=== PATIENT | male | born 1930 | race Caucasian/White ===

== ENCOUNTER → 2016-11-04 | Outpatient (CLI) | payer MEDICARE, BC ==
[2016-11-04 12:01] LABS: ABSOLUTE BASOPHILS # (AUTO) 0.1 10^3/uL (0.0-0.2); ABSOLUTE EOSINOPHILS # (AUTO) 0.2 10^3/uL (0.0-0.6); ABSOLUTE MONOCYTES (AUTO) 0.4 10^3/uL (0.1-1.4); ABSOLUTE NEUT (AUTO) 2.6 10^3/uL (1.7-8.2); EOSINOPHILS % (AUTO) 3.2 % (0-6); HEMOGLOBIN 14.9 g/dL (13.5-17.0); HGB HCT DIFFERENCE 0.7; LYMPHOCYTES % (AUTO) 38.2 % (13-45); MEAN CORPUSCULAR HGB CONC 33.8 g/dL (32.0-36.0); MEAN CORPUSCULAR VOLUME 95 fl (80-97); MONOCYTES % (AUTO) 7.4 % (3-13); RED BLOOD COUNT 4.64 10^6/uL (4.35-5.55); SEGMENTED NEUTROPHILS % (AUTO) 50.2 % (42-78); WHITE BLOOD COUNT 5.1 10^3/uL (4.0-10.5)
[2016-11-04 12:22] LABS: ALANINE AMINOTRANSFERASE 33 U/L (21-72); ALBUMIN 4.1 g/dL (3.5-5.0); ALKALINE PHOSPHATASE 51 U/L (38-126); ANION GAP 10 (5-19); ASPARTATE AMINO TRANSFERASE 24 U/L (17-59); BILIRUBIN,DIRECT 0.3 mg/dL (0.0-0.4); BILIRUBIN,TOTAL 1.5 mg/dL (0.2-1.3); BLOOD UREA NITROGEN 17 mg/dL (7-20); CALCIUM 9.6 mg/dL (8.4-10.2); CARBON DIOXIDE 29 mmol/L (22-30); CHLORIDE 102 mmol/L (98-107); CREATININE RESULT 0.81 mg/dL (0.52-1.25); Direct HDL 51 mg/dL (>40); GLUCOSE 110 mg/dL (75-110); POTASSIUM 4.1 mmol/L (3.6-5.0); SODIUM 140.8 mmol/L (137-145); TOTAL PROTEIN 7.3 g/dL (6.3-8.2); TRIGLYCERIDES 151 mg/dL (<150)
[2016-11-04 12:33] LABS: DIRECT LDL 83 mg/dL (<100)
[2016-11-04 12:36] LABS: VLDL CHOLESTEROL 30.2 mg/dL (10-31)
== END ==
LOC: OD 10:20
PROVIDERS: ATTEND Internal Medicine
DX: I10 Essential (primary) hypertension (principal); E78.5 Hyperlipidemia, unspecified; I73.9 Peripheral vascular disease, unspecified; N40.0 Benign prostatic hyperplasia without lower urinary tract symptoms
CPT/HCPCS: 36415; 80053; 80061; 84443; 85025

== ENCOUNTER 2017-06-01 09:11 | Day surgery (SDC) | payer MEDICARE, BC ==
[2017-05-18 12:23] LABS: PROTHROMBIN TIME 13.9 SEC (11.4-15.4)
[2017-05-18 12:24] LABS: PARTIAL THROMBOPLASTIN TIME 31.9 SEC (23.5-35.8)
[2017-05-18 12:31] LABS: HEMATOCRIT 43.5 % (37.9-51.0); HEMOGLOBIN 14.9 g/dL (13.5-17.0); MEAN CORPUSCULAR HEMOGLOBIN 31.8 pg (27.0-33.4); MEAN CORPUSCULAR HGB CONC 34.3 g/dL (32.0-36.0); MEAN CORPUSCULAR VOLUME 93 fl (80-97); PLATELET COUNT 195 10^3/uL (150-450); RED BLOOD COUNT 4.69 10^6/uL (4.35-5.55); RED CELL DISTRIBUTION WIDTH 12.7 % (11.5-14.0); WHITE BLOOD COUNT 6.6 10^3/uL (4.0-10.5)
[2017-05-18 12:37] LABS: ANION GAP 11 (5-19); BLOOD UREA NITROGEN 13 mg/dL (7-20); CALCIUM 9.5 mg/dL (8.4-10.2); CARBON DIOXIDE 29 mmol/L (22-30); CHLORIDE 101 mmol/L (98-107); GLUCOSE 115 mg/dL (75-110); POTASSIUM 4.4 mmol/L (3.6-5.0); SODIUM 140.7 mmol/L (137-145)
--- NOTE | 2017-05-18 13:10 | EKG REPORT ---
SEVERITY:- ABNORMAL ECG - SINUS RHYTHM BORDERLINE LEFT AXIS DEVIATION NONSPECIFIC ST-T CHANGES- INFERIOR LEADS : Confirmed by: Pernell Sultana MD 18-May-2017 13:10:07
[~2017-06-01 09:11] MED LIST: CEFAZOLIN 1 GM/D5W RTU 1 GM/50 ML RTUPB IV PRN; LACTATED RINGERS 1000 ML IV PRN; LIDOCAINE 1%/EPINEPHRINE INJ 20 ML VIAL ONE; POVIDONE-IODINE 5% OPH PREP SOLN 30 ML ONE; SODIUM BICARBONATE 8.4% INJ 50 MEQ/50 ML DISP.SYRIN ONE
[2017-06-01] MEDS ORDERED: MIDAZOLAM 2 MG/2 ML INJ ONE (10:11)
[2017-06-01] MEDS ORDERED: FENTANYL CITRATE INJ/PF 100 MCG/2 ML AMPUL ONE ×2 (10:11)
[2017-06-01] MEDS ORDERED: PROPOFOL INJ 200 MG/20 ML VIAL IV ONE (10:12)
[2017-06-01] MEDS ORDERED: ONDANSETRON HCL INJ/PF 4 MG/2 ML SDV IV PRN (11:12)
[2017-06-01] MEDS ORDERED: DIPHENHYDRAMINE HCL 50 MG/ML VIAL IV PRN (11:12)
[2017-06-01] MEDS ORDERED: FENTANYL CITRATE INJ/PF 100 MCG/2 ML AMPUL IV PRN ×3 (11:12)
--- NOTE | 2017-06-01 12:48 | Operative Report ---
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 Patient was brought into the operating room and placed on the operating room table in a supine position. Patient was then prepped with a Betadine scrub and Betadine solution and draped in a sterile and aseptic manner. The area was then marked. 12 O'clock was marked towards the attachment of the ear 3 O'clock was marked towards the posterior 6:00 was marked towards the earlobe 9:00 was marked towards the cheek The area was then anesthetized with 1% lidocaine with epinephrine and bicarbonate for its anesthetic and hemostatic effects. The area was then excised and marked at 12:00. The specimen was sent for frozen section. The results came back that the deep and lateral margins were free. We had considered a primary closure but this would go against the natural relaxed skin tension lines. A primary closure would be too tight and would have increased chance of dehiscence. This will leave more of a scar so we decided to use a postauricular advancement flap reconstruction which would camouflage the scar better and take tension off of the closure so that would be less chances of complications. Because the cancer extended down onto the perichondrium could not do a graft so therefore a helical rim advancement flap was felt to be the best for this patient and give the least amount of distortion in the best cosmetic outcome Then we went ahead and outlined the flap and anesthetized it. We then incised the flap and developed a flap maintaining the subdermal plexus. Then we undermined 360 to allow for plate like scarring and minimize trap door deformity. Throughout the case hemostasis was achieved with the bipolar. Skin was closed with a interrupted stitch using 5-0 Prolene with knots being tied on the outside. We then applied tincture benzoin and Steri-Strips followed by a light pressure dressing. Patient was then reversed from anesthesia and taken to the [facility] for recovery. The patient tolerated well. There were no complications. Lesion size was approximately 1.2 cm please see pathology for actual size. Portions of this note may be dictated using [employer] voice recognition software. Occasional variations and spelling and vocabulary could be possible and are unintentional. Additionally, there is a chance that some errors may not be caught or corrected. Please notify the author of any discrepancies noted or if any statements are unclear. Subjective: No complaints Objective: Vital signs stable afebrile No bleeding Dressing intact Assessment and plan: Doing well. Elevate the operative site. Resume medications. Take antibiotics for 1 day Follow-up Full instructions were given to the patient and family and they understand Portions of this note may be dictated using [employer] voice recognition software. Occasional variations and spelling and vocabulary could be possible and are unintentional. Additionally, there is a chance that some errors may not be caught or corrected. Please notify the offer of any discrepancies noted or if any statements are unclear.
--- NOTE | 2017-06-01 12:50 | Discharge Summary ---
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 Leave the steri-strip tapes on for 5 days, then removal. Then cleaning wound with peroxide and apply Neosporin/bacitracin 3 times per day. Antibiotics for 1 day, then discontinue. Elevate operative area to decrease swelling. Do not strain, or lift heavy objects. Call for excessive bleeding, increased temperature of 101, uncontrolled pain, or excessive nausea or vomiting. You may reach Dr. Mitchell through his office at [phone]. In the event of an emergency after hours, then contact Dr. Mitchell through [facility]. Return to the office for a postop check on . The time will be scheduled by the nursing staff of [facility] prior to discharge. Please give the patient a copy of their labs and EKG so they can bring this to their PMD. Thank you Portions of this note may be dictated using [employer] voice recognition software. Occasional variations and spelling and vocabulary could be possible and are unintentional. Additionally, there is a chance that some errors may not be caught or corrected. Please notify the offer of any discrepancies noted or if any statements are unclear. Referrals: CM SLATER MD [Primary Care Provider] - Discharge Diet: As Tolerated Report the Following to Your Physician Immediately: Unusual Bleeding - Keep head elevated. No bending or straining. Follow-up on .
[2017-06-01 18:17] VITALS: BP 170/87
== END 2017-06-01 14:40 | disposition home or self-care (01) ==
LOC: OROUT 09:11
PROVIDERS: ATTEND Plastic Surgery
PROC: 0HB3XZZ Excision of Left Ear Skin, External Approach (ICD-10-PCS; 2017-06-01)
PROC: 0HX3XZZ Transfer Left Ear Skin, External Approach (ICD-10-PCS; principal; 2017-06-01 11:00)
DX: C44.219 Basal cell carcinoma of skin of left ear and external auricular canal (principal); I10 Essential (primary) hypertension; E89.2 Postprocedural hypoparathyroidism; E89.3 Postprocedural hypopituitarism; E89.0 Postprocedural hypothyroidism; Z79.01 Long term (current) use of anticoagulants; Z87.891 Personal history of nicotine dependence; Z79.899 Other long term (current) drug therapy; Z79.82 Long term (current) use of aspirin; Z85.828 Personal history of other malignant neoplasm of skin
CPT/HCPCS: 300; 36415; 80048; 85027; 85610; 85730; 88305; 88331; 93005; 93010; J0690; J2250; J2704; J3010; J3490

== ENCOUNTER 2017-06-14 13:00 | Emergency (ER) | payer MEDICARE, BC ==
--- NOTE | 2017-06-14 14:39 | ER Document Report ---
ED Extremity Problem, Lower - General Chief Complaint: Leg Pain Stated Complaint: RIGHT LEG PAIN Time Seen by Provider: 06/14/17 14:07 Mode of Arrival: Wheelchair Information source: Patient Notes: 86-year-old male presents to ED for complaint of pain and swelling to his right knee and leg all the way down to his foot for the last 6 days. He states that he had to get a piece of PVC pipe up from the floor and he had been down to do it. He states he put his knee on the ground and when he did he twisted his knee and leg and has had pain since then. He states he went to [place] [facility] last week and they did a venous Doppler which was negative. He states the pain just continues to get worse. He states he takes gabapentin Klonopin and hydrocodone which is not helping this pain. He denies using any brace or anything during this time. He states he has one at home but did not think to put it on. TRAVEL OUTSIDE OF THE [place] IN LAST 30 DAYS: No - HPI Location: Knee, Leg Occurred: Other Where: Outdoors - 6 days ago Onset/Duration: Persistent Quality of pain: Achy, Cramping, Sharp Severity: Severe Pain Level: 5 Context: Twisted Recent injury: Possibly Associated symptoms: Painful ambulation Exacerbated by: Hanging down, Movement, Walking Relieved by: Nothing - Related Data Allergies/Adverse Reactions: No Known Allergies Allergy (Verified 06/14/17 13:01) Past Medical History - General Information source: Patient - Social History Smoking Status: Never Smoker Cigarette use (# per day): No Chew tobacco use (# tins/day): No Smoking Education Provided: No Frequency of alcohol use: None Drug Abuse: None Lives with: Family Family History: Reviewed & Not Pertinent Patient has suicidal ideation: No Patient has homicidal ideation: No - Past Medical History Cardiac Medical History: Reports: None Pulmonary Medical History: Reports: None EENT Medical History: Reports: None Neurological Medical History: Reports: None, Other - Peripheral neuropathy bilateral lower extremity Endocrine Medical History: Reports: Other - Thyroidectomy due to goiter Renal/ Medical History: Reports: Hx Benign Prostatic Hyperplasia Malignancy Medical History: Reports Hx Skin Cancer GI Medical History: Reports: Hx Endoscopy - 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 Denies: Hx Coronary Artery Bypass Graft, Hx Coronary Stent - Immunizations Immunizations up to date: Yes Hx Diphtheria, Pertussis, Tetanus Vaccination: - UNSURE Hx Pneumococcal Vaccination: 12/20/13 Review of Systems - Review of Systems Constitutional: No symptoms reported EENT: No symptoms reported Cardiovascular: No symptoms reported Respiratory: No symptoms reported Gastrointestinal: No symptoms reported Genitourinary: No symptoms reported Male Genitourinary: No symptoms reported Musculoskeletal: Other - Right knee and lower leg pain Skin: No symptoms reported Hematologic/Lymphatic: No symptoms reported Neurological/Psychological: No symptoms reported Physical Exam - Vital signs Vitals: Temp Pulse Resp BP Pulse Ox 97.9 F 78 16 153/73 H 96 06/14/17 13:06 06/14/17 13:06 06/14/17 13:06 06/14/17 13:06 06/14/17 13:06 Interpretation: Normal - General General appearance: Appears well, Alert - HEENT Head: Normocephalic, Atraumatic Eyes: Normal Pupils: PERRL - Respiratory Respiratory status: No respiratory distress Chest status: Nontender Breath sounds: Normal Chest palpation: Normal - Cardiovascular Rhythm: Regular Heart sounds: Normal auscultation Murmur: No - Abdominal Inspection: Normal Distension: No distension Bowel sounds: Normal Tenderness: Nontender Organomegaly: No organomegaly - Back Back: Normal, Nontender - Extremities General upper extremity: Normal inspection, Nontender, Normal color, Normal ROM , Normal temperature General lower extremity: Normal temperature. No: Silviano's sign Knee: Tender, Ecchymosis, Joint effusion, Pain with ROM, Patellar tendon intact , Tender joint line. No: Abrasion, Deformity, Dislocation, Drawer's test instability, Instability, Laceration, Laxity with valgus stress, Laxity with varus stress, Popliteal fossa tender, Unable to bear weight - Painful to bear weight Calf: Normal, Nontender Ankle: Normal, Nontender Foot: Normal, Nontender - Neurological Neuro grossly intact: Yes Cognition: Normal Orientation: AAOx4 Brittney Coma Scale Eye Opening: Spontaneous Alpine Coma Scale Verbal: Oriented Alpine Coma Scale Motor: Obeys Commands Brittney Coma Scale Total: 15 Speech: Normal Motor strength normal: LUE, RUE, LLE, RLE Sensory: Normal - Psychological Associated symptoms: Normal affect, Normal mood - Skin Skin Temperature: Warm Skin Moisture: Dry Skin Color: Normal Course - Re-evaluation Re-evalutation: 06/15/17 02:40 Patient refused Miles wrap or knee immobilizer. He states he can walk out and he has a new brace at home that he would rather use his own. Patient was instructed to follow-up with her primary doctor and with orthopedics. Patient and verbalized understanding of instructions. - Vital Signs Vital signs: Temp Pulse Resp BP Pulse Ox 98.4 F 71 16 150/73 H 98 06/14/17 16:11 06/14/17 16:11 06/14/17 16:11 06/14/17 16:11 06/14/17 16:11 - Laboratory Result Diagrams: 06/14/17 14:40 Laboratory results interpreted by me: 06/14/17 14:40 Carbon Dioxide 32 H - Diagnostic Test Radiology reviewed: Image reviewed, Reports reviewed Discharge - Discharge Clinical Impression: Effusion, right knee Right knee pain Qualifiers: Chronicity: acute Qualified Code(s): M25.561 - Pain in right knee Condition: Stable Disposition: HOME, SELF-CARE Additional Instructions: SUSPECTED INTERNAL KNEE INJURY: The examiner of your injured knee suspects an internal injury to the cartilage or internal ligaments. This must be further investigated by an lead sustainability specialist. The knee should be protected, ice packed, and elevated while awaiting your follow-up exam by the orthopedist. If there is severe swelling, severe pain, or any new symptoms while awaiting your exam, you should call the orthopedist. (If he/she is unavailable, call us or return for re-examination.) ICE & ELEVATION: Apply ice packs frequently against the painful area. Many different schedules are recommended, such as "20 minutes on, 20 minutes off" or "one hour ice, two hours rest." If you need to work, you may need to go longer between ice treatments. You should plan to have the area ice packed AT LEAST one- fourth of the time. The ice should be applied over the wrap, tape, or splint, or over a layer of cloth -- not directly against the skin. Some ice bags have a built-in cloth and can be put directly on the skin. Your injured part should be elevated as much as possible over the next 48 hours. Try to keep the injury above the level of the heart. Avoid use of the injured area. Elevation and rest will decrease the swelling. USE OF [id number] IBUPROFEN: Ibuprofen (Advil, Nuprin, Medipren, Motrin IB) is a medication for fever and pain control. In addition, it has anti- inflammatory effects which may be beneficial, especially in the treatment of injuries. It's best to take ibuprofen with food. Persons with ulcer disease or allergy to aspirin should notify their physician of this before taking ibuprofen. Ibuprofen can be given every four to six hours, for a total of four doses daily. Age Pain or fever dose Antiinflammatory dose 6-8 yr 200 mg (1 tab) 200 mg (1 tab) 9-11 yr 200 mg (1 tab) 200-400 mg (1-2 tab) 11-14 yr 200-400 mg (1-2 tab) 400 mg (2 tab) 15-adult 400 mg (2 tab) 600 mg (3 tab) ORAL NARCOTIC MEDICATION: Usually and narcotics as are prescribed. You are not getting a new prescription at this time as you are on chronic pain management. This medication is a narcotic. It's best taken with food, as nausea can result if taken on an empty stomach. Don't operate machinery or drive within six hours of taking this medication. Do not combine this medicine with alcohol, or with any medication which can cause sedation (such as cold tablets or sleeping pills) unless you get permission from the physician. Narcotics tend to cause constipation. If possible, drink plenty of fluids and eat a diet high in fiber and fruits. Please be aware that prescription narcotics also have the potential for abuse. People become addicted to these medications because of the general sense of wellbeing that they induce. This feeling along with a significant reduction in tension, anxiety, and aggression provides a stimulating seductive quality to these drugs. Once your pain is under control, we encourage you to discard your unused narcotics. You knee brace that you have at home. This could give you comfort until you follow-up with the primary doctor and orthopedics. Also he can use the Aspercreme you have at home if it is Aspercreme lidocaine as this may give you some comfort also. Please follow-up with the primary doctor as I have instructed you. I have given you a copy of the lab results and the x-ray results please take these with you to your follow-up appointments. FOLLOW-UP CARE: If you have been referred to a physician for follow-up care, call the physician s office for an appointment as you were instructed or within the next two days. If you experience worsening or a significant change in your symptoms, notify the physician immediately or return to the Emergency Department at any time for re-evaluation. Forms: Elevated Blood Pressure Referrals: CM SLATER MD [Primary Care Provider] - Follow up tomorrow SANDRA MORALES DO [ACTIVE STAFF] - Follow up as needed
[2017-06-14 15:11] LABS: ALANINE AMINOTRANSFERASE 36 U/L (21-72); ALKALINE PHOSPHATASE 65 U/L (38-126); ANION GAP 6 (5-19); ASPARTATE AMINO TRANSFERASE 27 U/L (17-59); BILIRUBIN,DIRECT 0.3 mg/dL (0.0-0.4); BLOOD UREA NITROGEN 14 mg/dL (7-20); CALCIUM 9.5 mg/dL (8.4-10.2); CARBON DIOXIDE 32 mmol/L (22-30); CHLORIDE 103 mmol/L (98-107); CREATINE KINASE 124 U/L (55-170); GLUCOSE 102 mg/dL (75-110); POTASSIUM 4.1 mmol/L (3.6-5.0); SODIUM 140.8 mmol/L (137-145); TOTAL PROTEIN 7.1 g/dL (6.3-8.2)
--- NOTE | 2017-06-14 15:20 | RADIOLOGY REPORT (SQ) ---
EXAM DESCRIPTION: KNEE RIGHT 4 VIEWS COMPLETED DATE/TIME: 06/14/2017 2:58 pm REASON FOR STUDY: pain after twisting knee and leg COMPARISON: None. NUMBER OF VIEWS: Four views. TECHNIQUE: AP, lateral, and both oblique radiographic images acquired of the right knee. LIMITATIONS: None. FINDINGS: MINERALIZATION: Normal. BONES: No acute fracture or dislocation. No worrisome bone lesions. JOINT: There is a joint effusion. SOFT TISSUES: No soft tissue swelling. No radio-opaque foreign body. OTHER: No other significant finding. IMPRESSION: There is a joint effusion. There is no osseous abnormality. TECHNICAL DOCUMENTATION: JOB ID: [id number] [employer]- All Rights Reserved Reading location - IP/workstation name: [email or web address]
--- NOTE | 2017-06-14 15:21 | RADIOLOGY REPORT (SQ) ---
EXAM DESCRIPTION: TIBIA FIBULA RIGHT COMPLETED DATE/TIME: 06/14/2017 2:58 pm REASON FOR STUDY: pain after twisting knee and leg COMPARISON: None. NUMBER OF VIEWS: Two views. TECHNIQUE: Two radiographic images acquired of the right tibia and fibula to include the knee and an kle in at least one projection. LIMITATIONS: None. FINDINGS: MINERALIZATION: Normal. BONES: No acute fracture or dislocation. No worrisome bone lesions. SOFT TISSUES: No obvious swelling or foreign body. OTHER: No other significant finding. IMPRESSION: NEGATIVE STUDY OF THE RIGHT TIBIA AND FIBULA. NO RADIOGRAPHIC EVIDENCE OF ACUTE INJURY. TECHNICAL DOCUMENTATION: JOB ID: [id number] [employer]- All Rights Reserved Reading location - IP/workstation name: [email or web address]
[2017-06-14 16:16] VITALS: BP 150/73
== END 2017-06-14 16:16 | disposition home or self-care (01) ==
LOC: ER 13:00
DX: M25.461 Effusion, right knee (principal); M25.561 Pain in right knee; M79.604 Pain in right leg; M79.89 Other specified soft tissue disorders; X50.1XXA Overexertion from prolonged static or awkward postures, initial encounter; Z79.899 Other long term (current) drug therapy
CPT/HCPCS: 36415; 80053; 82550; 99283

== ENCOUNTER 2017-08-30 20:24 | Inpatient (IN) | payer MEDICARE, BC ==
[2017-08-30] MEDS ORDERED: ASPIRIN 81 MG TABLET, CHEWABLE PO ONE (21:10)
[2017-08-30] MEDS ORDERED: DILTIAZEM HCL/D5W 125 MG/125 ML RTUINJ IV PRN (21:11)
--- NOTE | 2017-08-30 21:16 | ER Document Report ---
ED Cardiac - General Chief Complaint: Chest Pain Stated Complaint: CHEST PAIN Time Seen by Provider: 08/30/17 21:00 Notes: Patient is a 86-year-old male that comes emergency department for chief complaint of chest pain that happened at 11 AM this morning, lasted for an hour and resolved but he states that he is intermittently getting very lightheaded feeling and became concerned. He denies syncope. He states he is intermittently mildly short of breath. He denies fever or chills, cough, nausea or vomiting. He is compliant with medications including metoprolol and he has a history of hyperlipidemia. He states he had a catheterization performed 2 years ago which showed some blockage but no stents were placed. He denies smoking, alcohol, recreational drugs. TRAVEL OUTSIDE OF THE [place] IN LAST 30 DAYS: No - Related Data Allergies/Adverse Reactions: No Known Allergies Allergy (Verified 08/30/17 20:26) Past Medical History - General Information source: Patient - Social History Smoking Status: Never Smoker Frequency of alcohol use: None Drug Abuse: None Lives with: Family Family History: Reviewed & Not Pertinent - Past Medical History Cardiac Medical History: Reports: Hx Hypercholesterolemia, Hx Hypertension Denies: Hx Coronary Artery Disease, Hx Heart Attack Pulmonary Medical History: Denies: Hx Asthma, Hx Bronchitis, Hx COPD, Hx Pneumonia Neurological Medical History: Denies: Hx Cerebrovascular Accident, Hx Seizures Renal/ Medical History: Reports: Hx Benign Prostatic Hyperplasia. 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 Denies: Hx Hepatitis, Hx Hiatal Hernia, Hx Ulcer Musculoskeltal Medical History: Reports Hx Arthritis - KALLI FEET/LEGS Infectious Medical History: Denies: Hx Hepatitis Past Surgical History: Reports: Hx Cardiac Catheterization, Hx Thyroid Surgery - Thyroidectomy left a very small piece. Denies: Hx Coronary Artery Bypass Graft, Hx Coronary Stent, Hx Open Heart Surgery, Hx Pacemaker - Immunizations Immunizations up to date: Yes Hx Diphtheria, Pertussis, Tetanus Vaccination: Yes Hx Pneumococcal Vaccination: 12/20/13 Review of Systems - Review of Systems Constitutional: No symptoms reported EENT: No symptoms reported Cardiovascular: See HPI Respiratory: See HPI Gastrointestinal: No symptoms reported Genitourinary: No symptoms reported Male Genitourinary: No symptoms reported Musculoskeletal: No symptoms reported Skin: No symptoms reported Hematologic/Lymphatic: No symptoms reported Neurological/Psychological: No symptoms reported Physical Exam - Vital signs Vitals: Resp Pulse Ox 17 95 08/30/17 20:53 08/30/17 20:53 - Notes Notes: GENERAL: Alert, interacts well. No acute distress. HEAD: Normocephalic, atraumatic. EYES: Pupils equal, round, and reactive to light. Extraocular movements intact. ENT: Oral mucosa moist, tongue midline. NECK: Full range of motion. Supple. Trachea midline. LUNGS: Clear to auscultation bilaterally, no wheezes, rales, or rhonchi. No respiratory distress. HEART: Irregularly irregular with tachycardia ABDOMEN: Soft, non-tender. Non-distended. Bowel sounds present in all 4 quadrants. EXTREMITIES: Moves all 4 extremities spontaneously. No edema, normal radial and dorsalis pedis pulses bilaterally. No cyanosis. BACK: no cervical, thoracic, lumbar midline tenderness. No saddle anesthesia, normal distal neurovascular exam. NEUROLOGICAL: Alert and oriented x3. Normal speech. [cranial nerves II through XII grossly intact]. PSYCH: Normal affect, normal mood. SKIN: Warm, dry, normal turgor. No rashes or lesions noted. Course - Re-evaluation Re-evalutation: EKG shows atrial fibrillation with rapid ventricular response at a rate of 135 inverted T waves inferiorly, borderline ST segment depression in leads V4 and V5. Patient denies any knowledge of history of atrial fibrillation, also denies. Appears to be new onset atrial fibrillation with rapid ventricular response, likely the cause of patient's symptoms, workup pending. Blood pressure 109-120s systolic, patient is 86 years old, decision was made not to give bolus but to start drip instead and titrate, this was discussed with Dr. De La Rosa. Patient with no change with the drip on 5 mg/hr, this was increased to 10 mg/h. After about 1 minute on the new dose patient's heart rate started to improve, remained in atrial fibrillation in the 80s-90s. Patient asymptomatic on reevaluation. CBC unremarkable, chemistry generally unremarkable, TSH unremarkable, magnesium unremarkable. CK mildly elevated. Troponin indeterminate at 0.083. Discussed with patient, will discuss with hospitalist for admission for new onset atrial fibrillation with rapid ventricular response. Anticoagulation begun with Lovenox. Discussed with Dr. Carr, internal medicine, patient will be admitted to [facility]. Patient and significant other state understanding agreement. - Vital Signs Vital signs: Temp Pulse Resp BP Pulse Ox 98.0 F 63 20 110/64 96 08/31/17 03:35 08/31/17 03:35 08/31/17 03:35 08/31/17 03:35 08/31/17 03:35 - Laboratory Result Diagrams: 08/30/17 20:50 08/30/17 20:50 Laboratory results interpreted by me: 08/30/17 08/30/17 20:46 20:50 Carbon Dioxide 32 H Creatine Kinase 174 H Urine Glucose (UA) 50 H Ur Leukocyte Esterase TRACE H Critical Care Note - Critical Care Note Total time excluding time spent on procedures (mins): 35 - Atrial fibrillation with rapid ventricular response Comments: Critical care time spent obtaining history from patient, discussions with consultants, development of treatment plan with patient, evaluation of patient' s response to treatment, examination of patient, ordering and performing treatments and interventions, ordering and review of laboratory studies, re- evaluation of patient's condition, ordering and review of radiographic studies, admission to the hospital. Discharge - Discharge Clinical Impression: Atrial fibrillation with rapid ventricular response, Lightheaded Condition: Stable Disposition: ADMITTED INPATIENT Admitting Provider: Hospitalist Unit Admitted: [facility]
[2017-08-30] MEDS ORDERED: DILTIAZEM HCL INJ 25 MG/5 ML VIAL ONE (21:20)
[2017-08-30 21:29] LABS: ABSOLUTE EOSINOPHILS # (AUTO) 0.1 10^3/uL (0.0-0.6); ABSOLUTE LYMPHOCYTES (AUTO) 2.6 10^3/uL (0.5-4.7); ABSOLUTE MONOCYTES (AUTO) 0.5 10^3/uL (0.1-1.4); ABSOLUTE NEUT (AUTO) 3.7 10^3/uL (1.7-8.2); BASOPHILS % (AUTO) 0.6 % (0-2); EOSINOPHILS % (AUTO) 1.6 % (0-6); HEMATOCRIT 45.5 % (37.9-51.0); HEMOGLOBIN 15.6 g/dL (13.5-17.0); LYMPHOCYTES % (AUTO) 37.5 % (13-45); MEAN CORPUSCULAR HEMOGLOBIN 32.3 pg (27.0-33.4); MEAN CORPUSCULAR HGB CONC 34.2 g/dL (32.0-36.0); MEAN CORPUSCULAR VOLUME 95 fl (80-97); MONOCYTES % (AUTO) 7.7 % (3-13); PLATELET COUNT 241 10^3/uL (150-450); RED BLOOD COUNT 4.82 10^6/uL (4.35-5.55); SEGMENTED NEUTROPHILS % (AUTO) 52.6 % (42-78); TOTAL CELLS COUNTED % (AUTO) 100 %
[2017-08-30 21:41] LABS: ALANINE AMINOTRANSFERASE 27 U/L (21-72); ALBUMIN 4.2 g/dL (3.5-5.0); ALKALINE PHOSPHATASE 56 U/L (38-126); ANION GAP 11 (5-19); ASPARTATE AMINO TRANSFERASE 26 U/L (17-59); BILIRUBIN,DIRECT 0.4 mg/dL (0.0-0.4); BILIRUBIN,TOTAL 0.6 mg/dL (0.2-1.3); BLOOD UREA NITROGEN 19 mg/dL (7-20); CALCIUM 9.8 mg/dL (8.4-10.2); CARBON DIOXIDE 32 mmol/L (22-30); CHLORIDE 100 mmol/L (98-107); CREATINE KINASE 174 U/L (55-170); GLUCOSE 103 mg/dL (75-110); POTASSIUM 4.3 mmol/L (3.6-5.0); SODIUM 143.4 mmol/L (137-145); TOTAL PROTEIN 7.6 g/dL (6.3-8.2)
[2017-08-30 21:52] LABS: CREATINE KINASE MB 4.29 ng/mL (<4.55)
[2017-08-30 21:56] LABS: TROPONIN I 0.083 ng/mL
--- NOTE | 2017-08-30 21:59 | RADIOLOGY REPORT (SQ) ---
EXAM DESCRIPTION: CHEST SINGLE VIEW COMPLETED DATE/TIME: 08/30/2017 9:37 pm REASON FOR STUDY: chest pain, dizziness COMPARISON: None. EXAM PARAMETERS: NUMBER OF VIEWS: One view. TECHNIQUE: Single frontal radiographic view of the chest acquired. RADIATION DOSE: NA LIMITATIONS: None. FINDINGS: LUNGS AND PLEURA: Mild basilar platelike subsegmental atelectasis bilaterally. No dense c onsolidation or significant effusion. MEDIASTINUM AND HILAR STRUCTURES: Age-appropriate. HEART AND VASCULAR STRUCTURES: Mild cardiac enlargement. BONES: No acute findings. HARDWARE: None in the chest. OTHER: No other significant finding. IMPRESSION: Mild basilar platelike subsegmental atelectasis bilaterally. No dense consolidation or significant effusion. TECHNICAL DOCUMENTATION: JOB ID: [id number] [id number] 2010 [employer]- All Rights Reserved Reading location - IP/workstation name: [email or web address]
[2017-08-30] MEDS ORDERED: ENOXAPARIN SODIUM INJ 80 MG/0.8 ML DISP.SYRIN SUBCUT ONE (23:12)
[2017-08-30] MEDS ORDERED: GABAPENTIN 300 MG CAPSULE PO ONE (23:15)
[2017-08-30] MEDS ORDERED: MAG HYDROX/AL HYDROX/SIMETH SUSP 30 ML UDCUP PO PRN (23:16)
[2017-08-30] MEDS ORDERED: NORMAL SALINE 1000 ML 1,000 ML IV PRN (23:19)
[2017-08-30] MEDS ORDERED: METOPROLOL TARTRATE 25 MG TABLET PO ONE (23:45)
[2017-08-31 01:03] LABS: APPEARANCE,URINE CLEAR; BILIRUBIN,URINE NEGATIVE (NEGATIVE); COLOR,URINE YELLOW; GLUCOSE, URINE 50 mg/dL (NEGATIVE); KETONES,URINE NEGATIVE (NEGATIVE); LEUKOCYTE ESTERASE,URINE TRACE (NEGATIVE); NITRITE,URINE NEGATIVE (NEGATIVE); PROTEIN,URINE NEGATIVE (NEGATIVE); URINE SPECIFIC GRAVITY 1.019; UROBILINOGEN,URINE NEGATIVE mg/dL (<2.0)
[2017-08-31] MEDS ORDERED: NORMAL SALINE 1000 ML 1,000 ML IV ONE (05:15)
[2017-08-31] MEDS ORDERED: METOPROLOL TARTRATE 25 MG TABLET PO ONE (05:15)
--- NOTE | 2017-08-31 05:35 | PDOC H&P ---
History of Present Illness Admission Date/PCP: 08/30/17 23:28 CM SLATER, Patient complains of: Palpitations History of Present Illness: JANAE PORTILLO is a 86 year old male with history of hypertension and dyslipidemia, coronary artery disease, esophageal stricture, neuropathic pain and BPH. Patient presents with approximately 12 hours of chest tightness and palpitations associated with lightheadedness. Symptoms were noted when he first woke up with dull pain across the top of his chest radiating to the arms bilaterally. Patient believed it was neuropathic pain prompting him to take an OxyContin without significant improvement he self refers to the emergency room for evaluation where he is found to be in A. fib with RVR. He started on IV Cardizem and referred to the hospitalist for admission. Patient denies any new medications, previous episode or missing metoprolol dose. 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 Hematology: Denies: Anemia, Sickle Cell Disease Past Surgical History Past Surgical History: Reports: Cardiac Catheterization Denies: Coronary Artery Bypass Graft, Coronary Stent, Pacemaker Social History Information Source: Patient, [facility] Records Lives with: Family Smoking Status: Former Smoker Last Time Smoked: quit at age 29 Frequency of Alcohol Use: None Hx Recreational Drug Use: No Drugs: None Hx Prescription Drug Abuse: No - Advance Directive Resuscitation Status: Full Code Family History Family History: Hypertension Parental Family History Reviewed: Yes Children Family History Reviewed: Yes Sibling(s) Family History Reviewed.: Yes Medication/Allergy Home Medications: Clonazepam [Klonopin] 0.5 mg PO HSP PRN 02/12/15 Hydrocodone Bit/Acetaminophen [Hydrocodon-Acetaminophn 10-325] 1 each PO Q6HP PRN 02/12/15 Simvastatin 20 mg PO QHS 02/12/15 Tamsulosin HCl 0.4 mg PO DAILY 02/12/15 Brimonidine Tartrate/Timolol [Combigan Eye Drops] 1 drop OU BID 02/21/15 Brinzolamide [Azopt] 1 drop OU BID 02/21/15 Latanoprost [Xalatan 0.005% Oph Soln 2.5 ml] 1 drop OU QHS 02/21/15 Aspirin [Aspirin EC] 81 mg PO DAILY 08/31/17 Bisacodyl [Dulcolax 5 Mg Tablet] 5 mg PO DAILYP PRN 08/31/17 Gabapentin [Neurontin 300 mg Capsule] 600 mg PO TID 08/31/17 Metoprolol Succinate [Toprol Xl] 25 mg PO DAILY 08/31/17 Vitamin B Complex [B Complex] 1 each PO DAILY 08/31/17 Allergies/Adverse Reactions: No Known Allergies Allergy (Verified 08/30/17 20:26) Review of Systems Constitutional: ABSENT: chills, fever(s), headache(s), weight gain, weight loss Eyes: ABSENT: visual disturbances Ears: ABSENT: hearing changes Cardiovascular: ABSENT: chest pain, dyspnea on exertion, edema, orthropnea, palpitations Respiratory: ABSENT: cough, hemoptysis Gastrointestinal: ABSENT: abdominal pain, constipation, diarrhea, hematemesis, hematochezia, nausea, vomiting Genitourinary: ABSENT: dysuria, hematuria Musculoskeletal: ABSENT: joint swelling Integumentary: ABSENT: rash, wounds Neurological: ABSENT: abnormal gait, abnormal speech, confusion, dizziness, focal weakness, syncope Psychiatric: ABSENT: anxiety, depression, homidical ideation, suicidal ideation Endocrine: ABSENT: cold intolerance, heat intolerance, polydipsia, polyuria Hematologic/Lymphatic: ABSENT: easy bleeding, easy bruising Physical Exam Vital Signs: Temp Pulse Resp BP Pulse Ox 98.0 F 63 20 110/64 96 08/31/17 03:35 08/31/17 03:35 08/31/17 03:35 08/31/17 03:35 08/31/17 03:35 Intake & Output 08/29/17 08/30/17 08/31/17 11:59 11:59 11:59 Weight 80.3 kg General appearance: PRESENT: no acute distress, well-developed, well-nourished Head exam: PRESENT: atraumatic, normocephalic Eye exam: PRESENT: conjunctiva pink, EOMI, PERRLA. ABSENT: scleral icterus Ear exam: PRESENT: normal external ear exam Mouth exam: PRESENT: moist, tongue midline Neck exam: ABSENT: carotid bruit, JVD, lymphadenopathy, thyromegaly Respiratory exam: PRESENT: clear to auscultation kalli. ABSENT: rales, rhonchi, wheezes Cardiovascular exam: PRESENT: irregular rhythm, tachycardia. ABSENT: diastolic murmur, rubs, systolic murmur Pulses: PRESENT: normal dorsalis pedis pul Vascular exam: PRESENT: normal capillary refill GI/Abdominal exam: PRESENT: normal bowel sounds, soft. ABSENT: distended, guarding, mass, organolmegaly, rebound, tenderness Rectal exam: PRESENT: deferred Extremities exam: PRESENT: full ROM. ABSENT: calf tenderness, clubbing, pedal edema Neurological exam: PRESENT: alert, awake, oriented to person, oriented to place , oriented to time, oriented to situation, CN II-XII grossly intact. ABSENT: motor sensory deficit Psychiatric exam: PRESENT: appropriate affect, normal mood. ABSENT: homicidal ideation, suicidal ideation Skin exam: PRESENT: dry, intact, warm. ABSENT: cyanosis, rash Results Laboratory Results: 08/30/17 23:40 Troponin I 0.143 Impressions: Chest X-Ray 08/30/17 21:10 IMPRESSION: Mild basilar platelike subsegmental atelectasis bilaterally. No dense consolidation or significant effusion. Assessment & Plan - Diagnosis (1) Atrial fibrillation with rapid ventricular response Is this a current diagnosis for this admission?: Yes Plan: IMCU admission, IV Cardizem, transition to p.o. beta-sam, full dose Lovenox initiated, follow-up 2D echo and cardiac enzymes. (2) Lightheaded Is this a current diagnosis for this admission?: Yes Plan: Secondary to #1, IV fluid bolus and out of bed with assistance. - Time Time Spent: 30 to 50 Minutes - Inpatient Certification Medical Necessity: Need Close Monitoring Due to Risk of Patient Decompensation
[2017-08-31 07:04] LABS: ABSOLUTE EOSINOPHILS # (AUTO) 0.1 10^3/uL (0.0-0.6); ABSOLUTE LYMPHOCYTES (AUTO) 2.6 10^3/uL (0.5-4.7); ABSOLUTE MONOCYTES (AUTO) 0.5 10^3/uL (0.1-1.4); ABSOLUTE NEUT (AUTO) 2.8 10^3/uL (1.7-8.2); BASOPHILS % (AUTO) 0.7 % (0-2); EOSINOPHILS % (AUTO) 1.8 % (0-6); HEMATOCRIT 37.2 % (37.9-51.0); LYMPHOCYTES % (AUTO) 43.1 % (13-45); MEAN CORPUSCULAR HEMOGLOBIN 32.4 pg (27.0-33.4); MEAN CORPUSCULAR HGB CONC 34.5 g/dL (32.0-36.0); MEAN CORPUSCULAR VOLUME 94 fl (80-97); PLATELET COUNT 169 10^3/uL (150-450); RED BLOOD COUNT 3.97 10^6/uL (4.35-5.55); SEGMENTED NEUTROPHILS % (AUTO) 46.4 % (42-78); TOTAL CELLS COUNTED % (AUTO) 100 %
[2017-08-31 07:26] LABS: ANION GAP 7 (5-19); BLOOD UREA NITROGEN 17 mg/dL (7-20); CALCIUM 8.7 mg/dL (8.4-10.2); CARBON DIOXIDE 28 mmol/L (22-30); CHLORIDE 107 mmol/L (98-107); CREATINE KINASE 89 U/L (55-170); GLUCOSE 117 mg/dL (75-110); SODIUM 142.4 mmol/L (137-145)
[2017-08-31 07:31] LABS: HEMOGLOBIN 12.8 g/dL (13.5-17.0)
[2017-08-31 07:34] LABS: CREATINE KINASE MB 3.27 ng/mL (<4.55)
[2017-08-31 07:39] LABS: TROPONIN I 0.201 ng/mL
--- NOTE | 2017-08-31 07:45 | EKG REPORT ---
SEVERITY:- ABNORMAL ECG - ATRIAL FLUTTER WITH 2:1 AV BLOCK PROBABLE INFERIOR INFARCT, AGE INDETERMINATE CONSIDER ANTERIOR INFARCT REPOLARIZATION ABNORMALITY, PROB RATE RELATED LATERAL LEADS ARE ALSO INVOLVED : Confirmed by: Pernell Sultana MD 31-Aug-2017 07:44:55
--- NOTE | 2017-08-31 07:45 | EKG REPORT ---
SEVERITY:- ABNORMAL ECG - SINUS RHYTHM ATRIAL PREMATURE COMPLEX LVH WITH SECONDARY REPOLARIZATION ABNORMALITY : Confirmed by: Pernell Sultana MD 31-Aug-2017 07:44:28
--- NOTE | 2017-08-31 09:17 | Physician Advisory Note ---
Physician Advisor ProgressNote .: Pursuant to the plan for [facility], I have reviewed the medical record for this patient. Physician Advisor Statement: Please consider documenting, if you agree: 1. Is there an "Anemia of Acute Blood Loss, due to ", since starting Lovenox? (Hgb baseline 14.9 on 05/18/17, has dropped from 15.6 to 12.8) - or is this a lab error, or ...? Status: 86yo Medicare pt, in x 1MN already in ED with CP/SOB/palpit.s/ lightheadedness/new onset Afib RVR, with elevated trop I's that are continuing to climb. Highly unlikely to be considered sufficiently stabilized for d/c before a 2nd MN tonight. Approp for Inpt status. CK
[2017-08-31] MEDS: TAMSULOSIN HCL 0.4 MG CAP.SR.24H PO SCH (09:58)
[2017-08-31] MEDS: DOCUSATE SODIUM 100 MG CAPSULE PO SCH ×2 (09:59→18:06)
[2017-08-31] MEDS: ASPIRIN 81 MG TABLET, CHEWABLE PO SCH (09:59)
[2017-08-31] MEDS: METOPROLOL TARTRATE 25 MG TABLET PO SCH ×2 (09:59→18:05)
[2017-08-31] MEDS ORDERED: (PENDING PHARMACY ID) (Brinzolamide [Azopt] 1 DROP) OS SCH (10:00)
[2017-08-31] MEDS ORDERED: ENOXAPARIN SODIUM INJ 80 MG/0.8 ML DISP.SYRIN SUBCUT SCH (10:00)
[2017-08-31] MEDS ORDERED: METOPROLOL TARTRATE 25 MG TABLET PO SCH (10:00)
--- NOTE | 2017-08-31 11:39 | PDOC PROGRESS REPORT ---
Subjective Progress Note for:: 08/31/17 Subjective:: The patient states to feel much better. His chest discomfort and rapid heartbeat have resolved. He is presently on Cardizem drip. Discussed the elevation of troponins and possibly related to rapid heartbeat Reason For Visit: AFIB Physical Exam Vital Signs: Temp Pulse Resp BP Pulse Ox 97.5 F 54 L 19 113/61 99 08/31/17 07:41 08/31/17 07:41 08/31/17 07:41 08/31/17 07:41 08/31/17 07:41 Intake & Output 08/30/17 08/31/17 09/01/17 06:59 06:59 06:59 Intake Total 1252 Output Total 150 Balance 1102 Weight 80.3 kg General appearance: PRESENT: mild distress Head exam: PRESENT: atraumatic Eye exam: PRESENT: conjunctiva pink Neck exam: PRESENT: carotid bruit. ABSENT: JVD Respiratory exam: PRESENT: clear to auscultation edmund Cardiovascular exam: PRESENT: RRR, +S1, +S2 Pulses: PRESENT: +1 pedal pulses bilateral GI/Abdominal exam: PRESENT: normal bowel sounds, soft Extremities exam: PRESENT: tenderness Musculoskeletal exam: PRESENT: tenderness Neurological exam: PRESENT: alert, awake Results Laboratory Results: 08/31/17 06:18 08/31/17 06:18 08/31/17 08/31/17 06:18 06:18 WBC 6.0 RBC 3.97 L Hgb 12.8 L D Hct 37.2 L MCV 94 MCH 32.4 MCHC 34.5 RDW 13.0 Plt Count 169 Seg Neutrophils % 46.4 Lymphocytes % 43.1 Monocytes % 8.0 Eosinophils % 1.8 Basophils % 0.7 Absolute Neutrophils 2.8 Absolute Lymphocytes 2.6 Absolute Monocytes 0.5 Absolute Eosinophils 0.1 Absolute Basophils 0.0 Sodium 142.4 Potassium 4.0 Chloride 107 Carbon Dioxide 28 Anion Gap 7 BUN 17 Creatinine 0.73 Est GFR ( Amer) > 60 Est GFR (Non-Af Amer) > 60 Glucose 117 H Calcium 8.7 08/30/17 08/31/17 08/31/17 23:40 06:18 06:18 Creatine Kinase 89 CK-MB (CK-2) 3.27 Troponin I 0.143 0.201 Impressions: Chest X-Ray 08/30/17 21:10 IMPRESSION: Mild basilar platelike subsegmental atelectasis bilaterally. No dense consolidation or significant effusion. Assessment & Plan - Diagnosis (1) Non-ST elevated myocardial infarction (non-STEMI) Is this a current diagnosis for this admission?: Yes Plan: Elevated troponins possibly related to A. fib with RVR versus non-STEMI AK (2) Anemia Qualifiers: Anemia type: unspecified type Qualified Code(s): D64.9 - Anemia, unspecified Is this a current diagnosis for this admission?: Yes Plan: A significant drop in hemoglobin since hospitalization. 2 reasons to consider 1 rehydration and 2 anticoagulation. No active bleeding (3) Atrial fibrillation with rapid ventricular response Is this a current diagnosis for this admission?: Yes Plan: Presently normal sinus rhythm on Cardizem drip. Possible because of elevated troponins (4) Hypertension Is this a current diagnosis for this admission?: Yes Plan: Continue current medications. (5) GERD (gastroesophageal reflux disease) Is this a current diagnosis for this admission?: Yes Plan: Continue current medications.
--- NOTE | 2017-08-31 12:04 | PDOC PROGRESS REPORT ---
Subjective Progress Note for:: 08/31/17 Reason For Visit: AFIB Physical Exam Vital Signs: Temp Pulse Resp BP Pulse Ox 97.5 F 54 L 19 113/61 99 08/31/17 07:41 08/31/17 07:41 08/31/17 07:41 08/31/17 07:41 08/31/17 07:41 Intake & Output 08/30/17 08/31/17 09/01/17 06:59 06:59 06:59 Intake Total 1252 Output Total 150 Balance 1102 Weight 80.3 kg Results Laboratory Results: 08/31/17 06:18 08/31/17 06:18 08/31/17 08/31/17 06:18 06:18 WBC 6.0 RBC 3.97 L Hgb 12.8 L D Hct 37.2 L MCV 94 MCH 32.4 MCHC 34.5 RDW 13.0 Plt Count 169 Seg Neutrophils % 46.4 Lymphocytes % 43.1 Monocytes % 8.0 Eosinophils % 1.8 Basophils % 0.7 Absolute Neutrophils 2.8 Absolute Lymphocytes 2.6 Absolute Monocytes 0.5 Absolute Eosinophils 0.1 Absolute Basophils 0.0 Sodium 142.4 Potassium 4.0 Chloride 107 Carbon Dioxide 28 Anion Gap 7 BUN 17 Creatinine 0.73 Est GFR ( Amer) > 60 Est GFR (Non-Af Amer) > 60 Glucose 117 H Calcium 8.7 08/30/17 08/31/17 08/31/17 23:40 06:18 06:18 Creatine Kinase 89 CK-MB (CK-2) 3.27 Troponin I 0.143 0.201 Impressions: Chest X-Ray 08/30/17 21:10 IMPRESSION: Mild basilar platelike subsegmental atelectasis bilaterally. No dense consolidation or significant effusion. Assessment & Plan - Diagnosis (1) Non-ST elevated myocardial infarction (non-STEMI) Is this a current diagnosis for this admission?: Yes (2) Anemia Qualifiers: Anemia type: unspecified type Qualified Code(s): D64.9 - Anemia, unspecified Is this a current diagnosis for this admission?: Yes (3) Atrial fibrillation with rapid ventricular response Is this a current diagnosis for this admission?: Yes (4) Hypertension Is this a current diagnosis for this admission?: Yes (5) GERD (gastroesophageal reflux disease) Is this a current diagnosis for this admission?: Yes (7) BPH (benign prostatic hyperplasia) Is this a current diagnosis for this admission?: Yes (8) Peripheral neuropathy Is this a current diagnosis for this admission?: Yes (9) Hyperlipidemia Is this a current diagnosis for this admission?: Yes
[2017-08-31 13:08] LABS: CREATINE KINASE MB 3.44 ng/mL (<4.55); TROPONIN I 0.152 ng/mL
[2017-08-31] MEDS: TIMOLOL MALEATE 0.5% OPH SOLN 5 ML OS SCH ×2 (14:25→18:06)
[2017-08-31] MEDS: BRIMONIDINE TARTRATE 0.2% OPH SOLN 5 ML OS SCH ×2 (14:25→18:06)
[2017-08-31] MEDS: APIXABAN 2.5 MG TABLET PO SCH (18:02)
--- NOTE | 2017-08-31 18:28 | XCELERA REPORT ---
[address] [address] Transthoracic Echocardiogram Report Name: JANAE PORTILLO Age: 86 yrs Gender: Male : 1930 Patient Status: Inpatient Patient Location: [address] [place] [address] Study Date: 08/31/2017 11:19 AM Procedure: A two-dimensional transthoracic echocardiogram with color flow and Doppler was performed. Study Quality: Technically suboptimal. The study was technically difficult with many images being suboptimal in quality. Reason For Study: ATRIAL FIBRILLATION History: ATRIAL FIBRILLATION. Ordering Physician: SCOTT VALDIVIA Performed By: Nena Cook Interpretation Summary The left ventricle is normal in size. There is mild concentric left ventricular hypertrophy. LV EF is > than 60% Left ventricular systolic function is normal. Doppler measurements suggest normal left ventricular diastolic function The left ventricular wall motion is normal. The right ventricle is not well visualized secondary to technical limitations Right atrium not well visualized secondary to technical limitations The left atrial size is normal. There is no evidence of mitral valve prolapse. There is no vegetation seen on the mitral valve. There is no mitral valve stenosis. There is a trace amount of mitral regurgitation There is mild aortic stenosis There is a peak gradient of 21 mm of Hg. There is no tricuspid stenosis. There is a trace to mild amount of tricuspid regurgitation There is mild pulmonary hypertension by echo RVSP is 35 mm of Hg , wqith RA mean of 10. The pulmonic valve is not well visualized. There is no pericardial effusion. MMode/2D Measurements & Calculations RVDd: 3.5 cm LVIDd: 4.4 cm FS: 36.2 % Ao root diam: 3.1 cm IVSd: 1.3 cm LVIDs: 2.8 cm EDV(Teich): 85.8 ml Ao root area: 7.4 cm2 LVPWd: 1.5 cm ESV(Teich): 29.0 ml EF(Teich): 66.2 % LVOT diam: 2.1 cm LVOT area: 3.3 cm2 Doppler Measurements & Calculations MV E max sheron: MV dec slope: Ao V2 max: LV V1 max P.8 cm/sec 230.6 cm/sec 1.6 mmHg MV A max sheron: 216.5 cm/sec2 Ao max PG: LV V1 max: 65.3 cm/sec MV dec time: 21.3 mmHg 62.3 cm/sec MV E/A: 1.1 0.32 sec Ao V2 mean: 153.2 cm/sec Ao mean P.0 mmHg Ao V2 VTI: 55.9 cm JOHN(V,D): 0.90 cm2 PA V2 max: PI max sheron: TR max sheron: 81.6 cm/sec 180.7 cm/sec 239.7 cm/sec PA max PG: PI max P.1 mmHgTR max P.7 mmHg PI dec slope: 23.1 mmHg 94.8 cm/sec2 Left Ventricle The left ventricle is normal in size. There is mild concentric left ventricular hypertrophy. LV EF is > than 60%. Left ventricular systolic function is normal. Doppler measurements suggest normal left ventricular diastolic function. The left ventricular wall motion is normal. There is no thrombus. Right Ventricle The right ventricle is not well visualized secondary to technical limitations. Atria Right atrium not well visualized secondary to technical limitations. The left atrial size is normal. Mitral Valve There is no evidence of mitral valve prolapse. There is no vegetation seen on the mitral valve. There is no mitral valve stenosis. There is a trace amount of mitral regurgitation. Aortic Valve There is no aortic valvular vegetation. There is mild aortic stenosis. There is no LVOT obstruction. There is a peak gradient of 21 mm of Hg. No aortic regurgitation is present. Tricuspid Valve There is no tricuspid stenosis. There is a trace to mild amount of tricuspid regurgitation. There is mild pulmonary hypertension by echo. RVSP is 35 mm of Hg , wqith RA mean of 10. Pulmonic Valve The pulmonic valve is not well visualized. Great Vessels The aortic root is not well visualized but is probably normal size. Effusions There is no pericardial effusion. : SCOTT VALDIVIA > Cinthya Canada
[2017-08-31 19:13] LABS: CREATINE KINASE MB 3.35 ng/mL (<4.55); TROPONIN I 0.137 ng/mL
[2017-08-31] MEDS ORDERED: SIMVASTATIN 10 MG TABLET PO SCH (22:00)
[2017-08-31] MEDS ORDERED: GABAPENTIN 300 MG CAPSULE PO SCH (22:00)
[2017-08-31] MEDS ORDERED: CLONAZEPAM 1 MG TABLET PO SCH (22:00)
[2017-09-01 00:22] LABS: CREATINE KINASE MB 2.97 ng/mL (<4.55); TROPONIN I 0.122 ng/mL
--- NOTE | 2017-09-01 07:12 | EKG REPORT ---
SEVERITY:- ABNORMAL ECG - SINUS RHYTHM NONSPECIFIC ST-T CHANGES- INFERIOR LEADS : Confirmed by: Pernell Sultana MD 01-Sep-2017 07:11:55
[2017-09-01 07:20] LABS: HEMATOCRIT 41.4 % (37.9-51.0); HEMOGLOBIN 14.2 g/dL (13.5-17.0); MEAN CORPUSCULAR HGB CONC 34.2 g/dL (32.0-36.0); MEAN CORPUSCULAR VOLUME 94 fl (80-97); PLATELET COUNT 197 10^3/uL (150-450); RED BLOOD COUNT 4.42 10^6/uL (4.35-5.55); RED CELL DISTRIBUTION WIDTH 12.8 % (11.5-14.0); WHITE BLOOD COUNT 5.9 10^3/uL (4.0-10.5)
--- NOTE | 2017-09-01 08:55 | PDOC DISCHARGE SUMMARY ---
General - Admit/Disc Date/PCP Admission Date/Primary Care Provider: 08/30/17 23:28 CM SLATER, Discharge Date: 09/01/17 - Discharge Diagnosis (1) Non-ST elevated myocardial infarction (non-STEMI) Is this a current diagnosis for this admission?: Yes Summary: Most probably troponin leak due to A. fib with RVR. Resolved with medications. Troponins are back to normal. (2) Anemia Is this a current diagnosis for this admission?: Yes Summary: No acute bleeding noted. Most probably secondary to rehydration (3) Atrial fibrillation with rapid ventricular response Is this a current diagnosis for this admission?: Yes Summary: Converted to normal sinus rhythm with Cardizem drip. Presently on Toprol (4) Hypertension Is this a current diagnosis for this admission?: Yes Summary: Well controlled with medications (5) GERD (gastroesophageal reflux disease) Is this a current diagnosis for this admission?: Yes Summary: Continue current medication (6) Peripheral arterial disease Is this a current diagnosis for this admission?: Yes Summary: Continue current medication (7) BPH (benign prostatic hyperplasia) Is this a current diagnosis for this admission?: Yes Summary: Continue current medication (8) Peripheral neuropathy Is this a current diagnosis for this admission?: Yes Summary: Continue current medication (9) Hyperlipidemia Is this a current diagnosis for this admission?: Yes Summary: Continue current medication - Additional Information Resuscitation Status: Full Code Discharge Diet: As Tolerated Discharge Activity: Activity As Tolerated Prescriptions: Apixaban [Eliquis 2.5 mg Tablet] 2.5 mg PO BID #60 tablet Home Medications: Clonazepam [Klonopin] 0.5 mg PO HSP PRN 02/12/15 Hydrocodone Bit/Acetaminophen [Hydrocodon-Acetaminophn 10-325] 1 each PO Q6HP PRN 02/12/15 Simvastatin 20 mg PO WSUPPER 02/12/15 Tamsulosin HCl 0.4 mg PO WSUPPER 02/12/15 Brimonidine Tartrate/Timolol [Combigan 0.2%-0.5% Eye Drops] 1 drop OU BID Brinzolamide [Azopt] 1 drop OU BID 02/21/15 Latanoprost [Xalatan 0.005% Oph Soln 2.5 ml] 1 drop OU QHS 02/21/15 Aspirin [Aspirin EC] 81 mg PO DAILY 08/31/17 Bisacodyl [Dulcolax 5 mg Tablet] 5 mg PO DAILYP PRN 08/31/17 Gabapentin [Neurontin 300 mg Capsule] 600 mg PO Q8 08/31/17 Metoprolol Succinate [Toprol Xl] 25 mg PO DAILY 08/31/17 Vitamin B Complex [B Complex] 1 each PO DAILY 08/31/17 Apixaban [Eliquis 2.5 mg Tablet] 2.5 mg PO BID #60 tablet 09/01/17 History of Present Illness History of Present Illness: JANAE PORTILLO is a 86 year old male Hospital Course Hospital Course: The patient was admitted with Domenic parikh with RVR. He was started on Cardizem drip and Lovenox. He has converted to normal sinus rhythm. He was seen by the cardiology and started on Eliquis. He is presently scheduled for a follow-up with cardiology and a possible stress test before any further decisions. He had an echocardiogram. His EKG was normal on the day of discharge. His enzymes have trended down Physical Exam Vital Signs: Temp Pulse Resp BP Pulse Ox 98.1 F 83 18 146/71 H 97 09/01/17 04:04 09/01/17 07:00 09/01/17 04:04 09/01/17 04:04 09/01/17 04:04 Intake & Output 08/31/17 09/01/17 09/02/17 06:59 06:59 06:59 Intake Total 1252 1396 Output Total 150 Balance 1102 1396 Weight 80.3 kg 84.8 kg General appearance: PRESENT: no acute distress Head exam: PRESENT: atraumatic Eye exam: PRESENT: conjunctiva pink Neck exam: PRESENT: carotid bruit. ABSENT: JVD Respiratory exam: PRESENT: clear to auscultation edmund Cardiovascular exam: PRESENT: RRR, +S1, +S2 GI/Abdominal exam: PRESENT: normal bowel sounds, soft Extremities exam: PRESENT: full ROM Musculoskeletal exam: PRESENT: ambulatory Neurological exam: PRESENT: alert, awake Results Laboratory Results: 09/01/17 06:50 08/31/17 06:18 09/01/17 06:50 WBC 5.9 RBC 4.42 Hgb 14.2 Hct 41.4 MCV 94 MCH 32.0 MCHC 34.2 RDW 12.8 Plt Count 197 08/30/17 08/31/17 08/31/17 23:40 06:18 06:18 Creatine Kinase 89 CK-MB (CK-2) 3.27 Troponin I 0.143 0.201 08/31/17 08/31/17 08/31/17 12:17 12:17 18:09 Creatine Kinase 93 97 CK-MB (CK-2) 3.44 Troponin I 0.152 08/31/17 08/31/17 08/31/17 18:09 23:50 23:50 Creatine Kinase 75 CK-MB (CK-2) 3.35 2.97 Troponin I 0.137 0.122 09/01/17 06:50 Creatine Kinase CK-MB (CK-2) Troponin I 0.140 Impressions: Chest X-Ray 08/30/17 21:10 IMPRESSION: Mild basilar platelike subsegmental atelectasis bilaterally. No dense consolidation or significant effusion. Qualifiers - * PATIENT BEING DISCHARGED WITH ANY OF THE FOLLOWING DIAGNOSIS: No, GA GA Pt being discharged on Aspirin therapy?: Yes GA Pt being discharged on Statins?: Yes GA Pt discharged ACEI/ARBS?: No Reason(s) for not prescribing ACEI/ARBS:: Tx not tolerated
[2017-09-01 11:10] VITALS: BP 123/64
[2017-09-01] MEDS: ASPIRIN 81 MG TABLET, CHEWABLE PO SCH (11:27)
[2017-09-01] MEDS: APIXABAN 2.5 MG TABLET PO SCH (11:27)
[2017-09-01] MEDS: TAMSULOSIN HCL 0.4 MG CAP.SR.24H PO SCH (11:28)
[2017-09-01] MEDS: DOCUSATE SODIUM 100 MG CAPSULE PO SCH (11:28)
[2017-09-01] MEDS: METOPROLOL TARTRATE 25 MG TABLET PO SCH (11:29)
[2017-09-01] MEDS: TIMOLOL MALEATE 0.5% OPH SOLN 5 ML OS SCH (11:30)
[2017-09-01] MEDS: BRIMONIDINE TARTRATE 0.2% OPH SOLN 5 ML OS SCH (11:30)
--- NOTE | 2017-09-01 12:01 | CONSULTATION REPORT E ---
Consultation Report NAME: JANAE PORTILLO : 1930 AGE: 86Y DATE: 08/31/2017 336 A TO: ELENI HOLLINGSWORTH M.D. FROM: SCOTT CARR M.D. Requesting Physician REASON FOR CONSULTATION: The patient with paroxysmal atrial fibrillation, converted to sinus rhythm, and also with elevated troponin I. HISTORY OF PRESENT ILLNESS: The patient is an 86-year-old male with known history of hypertension and neuropathy, anxiety, and hyperlipidemia, who states that yesterday he had a few hours of dull pain across the front of the chest, which did not increase with exertion, and he states that the chest was somewhat tender to touch. It did not increase with exertion and finally, after an hour after he took OxyContin since he thought it was neuropathic pain, the pain subsided, but he was feeling weak and dizzy and his took his blood pressure, which was 80 systolic, and also she found that the his pulse was in the 150s. Hence, he was brought into the Emergency Room, where he was found to be in atrial fibrillation with a rapid ventricular response. He was started on a Cardizem infusion, and he has converted to sinus rhythm. The patient denies any symptoms. There is no PND or orthopnea. There is generalized fatigue and weakness. There is no TIA or CVA symptoms. The patient's troponin I which was elevated has trended down. His EKG postconversion to sinus shows sinus rhythm with LVH with possible strain pattern. No acute ischemia on the EKG. PAST MEDICAL HISTORY: Positive for a history of hypertension. In 2005 he had chest discomfort and had a cardiac catheterization at [facility], which showed nonobstructive coronary artery disease. The patient has not followed up. Since then, he has not had any anginal symptoms and his chest discomfort was thought secondary to esophageal stricture, which was dilated. He does have some history of GERD. He has no history of diabetes mellitus. No history of asthma or COPD. No history of thyroid disease. No history of TIA or CVA. History of anxiety present, but no depression. PAST SURGICAL HISTORY: Positive for subtotal thyroidectomy. He is not on any replacement. He has also had appendectomy and cholecystectomy and also skin cancer removed from the ear. FAMILY HISTORY: Positive for hypertension. No history of coronary artery disease. SOCIAL HISTORY: The patient quit smoking some 30 years ago. There is no history of EtOH abuse. DISPOSITION: The patient is a full code. His and his daughter are his surrogate healthcare decision makers. ALLERGIES: The patient has no known allergies. MEDICATIONS: 1. Aspirin 81 mg p.o. daily. 2. He is on 0.2 mg 1 b.i.d. 3. He is on Azopt 1 drop OS t.i.d. 4. He is on Klonopin 0.5 mg p.o. at bedtime. 5. He is on Colace 100 mg p.o. b.i.d. 6. He is on Lovenox 80 mg subcutaneously q. 12 hours. 7. He is on Neurontin 600 mg p.o. at bedtime. 8. He is on Maalox 15 mL p.o. q. 6 hours p.r.n. 9. He is on metoprolol 25 mg p.o. b.i.d. 10. He did get a normal saline bolus of 1 L. 11. He is on Zocor 20 mg p.o. at bedtime. 12. He is on Flomax 0.4 mg p.o. daily. 13. He is on Timoptic 0.5% 1 drop OS b.i.d. REVIEW OF SYSTEMS: CONSTITUTIONAL: Denies any fevers, chills or rigors. He complains of generalized weakness and fatigue, especially when his heart rate is up, although he is not aware of his palpitations. HEAD: Denies any headaches or head injury. History of dizziness off and on and was found to be due to atrial fibrillation with rapid ventricular response, with his blood pressure being low. EYES: The patient states he is blind in his right eye and the left eye has blurred vision unless he wears glasses. There is a history of glaucoma present. He has had a stent to the right eye, which was not successful as per the patient. EARS: He has no history of hearing loss. No history of tinnitus. No history of recurrent ear infections. NOSE: No history of hay fever. No history of nosebleeds. No history of nasal polyps. MOUTH: No altered taste sensation. No ulcers in the mouth. THROAT: No odynophagia or dysphagia. No recurrent sore throats. SKIN: History of skin cancer with no recurrence after surgical removal from the upper ear on the left side. No psoriasis. No pruritus. No yellowish discoloration of the skin. NECK: No history of neck pain. No neck swelling. LUNGS: No history of asthma or COPD. History of positive most likely chest wall pain. No history of cough or fever or sputum production. No history of pulmonary embolism. No history of sleep apnea. No history of wheezing. No history of pleuritic chest pain. No hemoptysis. CARDIAC: History of first episode of atrial fibrillation with symptoms of weakness and dizziness, with the blood pressure being 80 when the heart rate was up. No history of congestive heart failure. Nonobstructive coronary artery disease on 2005 on cath, but has not had any followup. He has not had any [place] or major coronary event after that catheterization. No history of PND or orthopnea. No history of leg edema. No syncope. ENDOCRINE: No history of diabetes mellitus. No history of thyroid disease. He has had a subtotal thyroidectomy, but he is not on any replacement. No history of polydipsia or polyuria. No history of heat or cold intolerance. RENAL: History of enlarged prostate symptoms controlled with medication. No history of chronic kidney disease. No history of symptoms of hematuria, pyuria, or dysuria. MUSCULOSKELETAL: History of arthritis of his knees and neuropathy of his lower extremities. No history of collagen vascular disease. GASTROINTESTINAL: History of GERD present. History of esophageal stricture in the past needing dilatation with no recurrence. No history of jaundice. No history of hepatitis. No history of fatty food intolerance. No history of GI bleed. No history of altered bowel movements. CENTRAL NERVOUS SYSTEM: No history of TIA or CVA. No history of headaches, migraines, or seizures. The patient states his gait is unsteady unless he uses a cane to walk, but no frequent falls. PSYCHIATRIC: History of anxiety present. No history of depression. VASCULAR: No history of calf or buttock claudication. No history of DVT. HEMATOLOGICAL: No history of bleeding diathesis. No history of clotting disorders. PHYSICAL EXAMINATION: GENERAL: At present, the patient is in sinus rhythm, in no acute distress. The patient is well , well nourished. He is well groomed. VITAL SIGNS: The patient is afebrile with a temperature of 97.5 degrees Fahrenheit. His pulse is 60 beats per minute. Blood pressure is 113/61. Respirations are 18 per minute. O2 sats are 99% on room air. HEENT: Head is atraumatic, normocephalic. Eyes: Pupils are equal, round, regular, react to light and accommodation. Extraocular movements are normal. There is no conjunctival pallor. There is no scleral icterus. Ears: Tympanic membranes are intact. External auditory canals are clear. Nose: There is no deviated nasal septum. There is no inflammation of the nasal mucous membranes. Mouth: Mucous membranes of the mouth are moist. Tongue is moist. There are no ulcers. There is no bleeding from the gums. Throat: There is no redness of the oropharynx. There are no exudates. SKIN: There are no skin rashes. There is no petechia or ecchymosis. There are no skin lesions. NECK: Supple. There is no JVD. Carotids are equal. There is no bruit. There is no lymphadenopathy. There is no goiter. Trachea is central. LUNGS: Clear to auscultation and percussion. There is no definite chest wall tenderness. HEART: S1 and S2 are heard. There is no S3 gallop. There is no S4 gallop. S1 is of normal intensity. There is a systolic murmur in the left sternal border on the apex. There is no rub. There are no gallops. ABDOMEN: Soft, nontender. There is no hepatosplenomegaly. Bowel sounds are well heard. There are no tender areas or masses. EXTREMITIES: Femorals are both felt. There are no femoral bruits. Leg pulses both felt. There is no pedal edema. There is no DVT or cellulitis. There is no calf tenderness. CENTRAL NERVOUS SYSTEM: The patient is conscious, awake, alert, oriented x3, with no focal deficit. PSYCHIATRIC: The patient's judgment and insight are intact. His affect is normal. DIAGNOSTIC STUDIES: The patient's initial EKG shows atrial fibrillation/flutter with rapid ventricular response. LVH with nonspecific ST and T changes. There is ST segment depression diffusely, probably related to rate. The patient's subsequent EKG after conversion to sinus rhythm shows sinus rhythm, atrial premature beats, LVH with minor strain pattern. No definite evidence of ischemia. The patient's chest x-ray: Mild bibasilar and some segmental atelectasis. No consolidation or significant effusion. Mild cardiac enlargement without heart failure. The patient's echocardiogram shows the left ventricle is normal in size. There is mild concentric left ventricular hypertrophy, and the ejection fraction is greater than 50%. Left ventricular systolic function is normal. There is normal left ventricular diastolic function. There is no mitral valve prolapse. There is no mitral valve stenosis. There is trace mitral regurgitation. There is mild aortic stenosis with peak gradient of 31 mmHg. There is trace to mild amount of tricuspid regurgitation. Right ventricular systolic pressure mildly at 35 mmHg. There is no pericardial effusion. The patient's white count is 6000. Hemoglobin is 12.8. Hematocrit is 37.2. Platelet count is 169,000. The patient's sodium is 142.4, potassium 4.0. Chloride is 107. CO2 is 28. The patient's BUN is 17, creatinine is 0.73. GFR is greater than 60. His glucose is 117. His calcium is 8.7. His CPK and CPK-MB were negative. The initial troponin was elevated at 0.143, and peaked at 0.201, and subsequently has trended down to 0.152 and 0.137. His TSH is normal at 1.86. His liver function tests are normal. His magnesium is 2.1. Calcium is 9.8. His albumin is 4.2. Total protein is 7.6. IMPRESSION: 1. Elevated troponin I, most likely secondary to atrial fibrillation with rapid ventricular response and hypotension. 2. Hypotension, resolved. The hypotension is secondary to atrial fibrillation with rapid ventricular response. 3. Paroxysmal atrial fibrillation, at present in sinus rhythm. 4. Nonobstructive coronary artery disease by cardiac catheterization of 2005. Needs a stress test, which can be done as an outpatient, to assess for progression of coronary artery disease. 5. Hypertension, well controlled. 6. Neuropathy. 7. Dyslipidemia. RECOMMENDATIONS: Would recommend to continue the patient on metoprolol 25 mg p.o. b.i.d. The patient has no contraindication to long-term anticoagulation, which has been discussed with the patient and the patient's , and the risk of bleeding with these have been discussed. They know that there is no antidote. In view of the patient's age, we will start the patient on Eliquis 2.5 mg p.o. q. 12 hours. We will recheck the patient's EKG in the morning and also troponin I in the morning, and if they are stable will discharge the patient home and set up the patient for the outpatient IV Lexiscan Cardiolite stress test. Of note, medical decision making is of high complexity. His medications have been reviewed and medications adjusted. I discussed with Dr. Scott Carr, the patient, and the patient's family. Note: The patient was seen at 9:30 a.m. and a total of 50 minutes spent on the patient, more than 50% of the time spent in direct patient care. Medical decision making is of high complexity. I will follow with you. The echo findings have been discussed with the patient and the patient's and also with the attending physician. Thanking you. DICTATING PHYSICIAN: ELENI HOLLINGSWORTH M.D. [id number] Y#: [id number] ID: [id number] JOB#: [id number] ACCT: [id number] cc:ELENI HOLLINGSWORTH M.D. >
--- NOTE | 2017-09-01 20:30 | PROGRESS NOTE E ---
Progress Note NAME: JANAE PORTILLO : 1930 AGE: 86Y DATE: 09/01/2017 ROOM: 336 SUBJECTIVE: The patient remains in sinus rhythm. He denies any chest pain or discomfort. There are no palpitations. There is no PND, orthopnea or leg edema. There are no TIA or CVA CMP. There is no bleeding on Eliquis. OBJECTIVE: GENERAL: On examination, the patient is well built and well nourished, in no acute distress. VITAL SIGNS: He is afebrile with a temperature of 98.1 degrees Fahrenheit; his pulse is 83 beats per minute, regular sinus rhythm, there is no ventricular arrhythmias on the monitor; his blood pressure is 123/64, respirations are 28 per minute, O2 saturations are 97% on room air. HEENT: Head is atraumatic, normocephalic. Eyes: Pupils are equal, round, regular, reactive to light and accommodation. Extraocular movements are normal. There is no conjunctival pallor. There is no scleral icterus. ENT is negative. NECK: Supple. There is no JVD. Carotids are equal. There is no bruit. There is no goiter. There is no lymphadenopathy. Trachea central. LUNGS: Clear to auscultation and percussion. There is no chest wall tenderness. HEART: S1 and S2 are heard. There is no S3 gallop. There is no S4 gallop. There is a systolic murmur on the left sternal border on the apex. There is no rub. ABDOMEN: Soft, nontender. There is no hepatosplenomegaly. Bowel sounds are well heard. There are no tender areas or masses. EXTREMITIES: Femorals are well felt. There are no femoral bruits. Leg pulses are well felt. There is no pedal edema. There is no DVT or cellulitis. There is no calf tenderness. There is no cyanosis or clubbing. CENTRAL NERVOUS SYSTEM: The patient is conscious, awake, alert, oriented x3 with no focal deficit. PSYCHIATRIC: The patient's judgment and insight are intact. His affect is normal. DIAGNOSTIC STUDIES: The patient's EKG shows that his EKG is within normal limits. This has been reviewed by me. LABORATORY DATA: The patient's troponin I has further come down to 0.122 and to 0.140. His white count is 5900; hemoglobin is 14.2; hematocrit is 41.4; and the platelet count is 197,000. IMPRESSION: 1. ELEVATED TROPONIN I, MOST LIKELY SECONDARY TO ATRIAL FIBRILLATION WITH RAPID VENTRICULAR RESPONSE AND HYPOTENSION. 2. HYPOTENSION, RESOLVED, *------* SECONDARY TO ATRIAL FIBRILLATION WITH RAPID VENTRICULAR RESPONSE WHICH ALSO GAVE SYMPTOMS OF DIZZINESS AND WEAKNESS. 3. PAROXYSMAL ATRIAL FIBRILLATION, PRESENTLY IN SINUS RHYTHM. 4. NONOBSTRUCTIVE CORONARY ARTERY DISEASE BY CARDIAC CATHETERIZATION OF 2005. Would recommend that the patient have a stress test. This has been arranged as an outpatient for this coming Wednesday. Stress test instructions given to the patient and patient's . 5. HYPERTENSION, WELL CONTROLLED. 6. NEUROPATHY. 7. DYSLIPIDEMIA. RECOMMENDATION: As mentioned earlier, would discharge the patient on Eliquis 2.5 mg p.o. b.i.d. Will increase the patient's Toprol XL to 25 mg p.o. b.i.d. Continue his current other medications. The patient and his daughter have my cell phone number to call me if there are any problems. Will follow the patient up in the office, since the patient so desires to follow up with me. DISPOSITION: The patient will be discharged home today. Discussed with Dr. Dukes. Note: Medical decision making is of high complexity. TIME SPENT: Forty minutes spent on this patient with more than 50% of the time spent on direct patient care and also reviewing his medications and adjusting his medication by increasing his Toprol to 25 mg p.o. twice a day. We will follow the patient in the office. DICTATING PHYSICIAN: ELENI HOLLINGSWORTH M.D. [id number] ALESSIO#: [id number] ID: [id number] JOB#: [id number] ACCT: [id number] cc: >
== END 2017-09-01 12:40 | disposition home or self-care (01) | DRG 282 ==
LOC: ER 20:24 → EH 23:28 → 3S 08-31 01:21
PROVIDERS: ADMIT Internal Medicine; ATTEND Internal Medicine
DX: I21.4 Non-ST elevation (NSTEMI) myocardial infarction (principal); I48.91 Unspecified atrial fibrillation; R07.9 Chest pain, unspecified; E78.5 Hyperlipidemia, unspecified; D64.9 Anemia, unspecified; K21.9 Gastro-esophageal reflux disease without esophagitis; G62.9 Polyneuropathy, unspecified; I10 Essential (primary) hypertension; N40.0 Benign prostatic hyperplasia without lower urinary tract symptoms; Z79.82 Long term (current) use of aspirin; Z79.899 Other long term (current) drug therapy
CPT/HCPCS: 36415; 71045; 80048; 80053; 81001; 82550; 82553; 83735; 84443; 84484; 85025; 85027; 93005; 93010; 93306; 94799; 96365; 96366; 96372; 99291; J1650; J3490; J7030